=== PATIENT | male | born 1955 | race Caucasian/White ===

== ENCOUNTER → 2019-03-02 | Outpatient (CLI) | payer OTHER ==
--- NOTE | 2019-03-02 14:40 | KCIC ---
EXAM: Chest, 2 views. HISTORY: Bronchitis. COMPARISON: None. FINDINGS: 2 views of the chest are obtained. There is increased opacity within the right upper lobe due to possible interstitial infiltrate or scarring. There is hyperinflation likely due to emphysema. There is no pleural effusion or pneumothorax. The heart is normal in size. IMPRESSION: 1. Suspected right upper lobe interstitial infiltrate. Follow-up to confirm resolution and exclude underlying neoplasm. 2. Emphysema. Electronically signed by: Elise Lai MD (03/02/2019 2:37 PM) [place] [id number]
== END | disposition home or self-care (01) ==
LOC: KCIC 13:05
PROVIDERS: ATTEND Family Medicine
DX: J43.9 Emphysema, unspecified (principal); J40 Bronchitis, not specified as acute or chronic
CPT/HCPCS: 71046

== ENCOUNTER → 2019-04-03 | Outpatient (CLI) | payer OTHER ==
--- NOTE | 2019-04-03 17:32 | KCIC ---
CHEST PA LATERAL Clinical indications: Emphysema. Follow-up of abnormal chest x-ray one month ago. COMPARISON: March 02, 2019. Findings: Hyperinflation is seen consistent with COPD. No acute lung infiltrate or pleural effusion or pulmonary edema or lung mass or pneumothorax is seen. The heart size, pulmonary vasculature, mediastinum and both makeda are unremarkable. The osseous structures appear intact. Impression: COPD. No acute radiographic abnormality is seen. The previously seen right upper lobe interstitial lung infiltrate has resolved. Electronically signed by: Rafa Avelar MD (04/03/2019 5:29 PM) [place] [id number]
== END | disposition home or self-care (01) ==
LOC: KCIC 08:52
PROVIDERS: ATTEND Family Medicine
DX: J44.9 Chronic obstructive pulmonary disease, unspecified (principal)
CPT/HCPCS: 71046